=== PATIENT | female | born 1990 | race Two or more races ===

== ENCOUNTER 2024-03-14 12:38 | Emergency (ER) | payer BC, SELFPAY ==
[2024-03-14 12:39] VITALS: BMI 22.6
[2024-03-14 13:16] VITALS: BP 122/85; PULSE 87; RESP 16; TEMP 36.7; O2SAT 99
[2024-03-14 13:21] LABS: Collection Type, Urine Clean Catch
[2024-03-14 13:36] LABS: Basophils % (Auto) 0 % (0-2.5); Eosinophils % (Auto) 0 % (0-10); Hematocrit 36.4 % (36.0-46.0); Hemoglobin 12.4 g/dL (12.0-16.0); Immature Granulocytes % (Auto) 0 % (0-0); Immature Granulocytes Auto 0.03 Thou/mm3 (0.00-0.00); Lymphocytes # (Auto) 1.4 Thou/mm3 (1.0-4.8); Lymphocytes % (Auto) 17 % (10-50); Mean Corpuscular HGB Conc 34.1 g/dl (31.0-37.0); Mean Corpuscular Hemoglobin 29.7 pg (25.0-35.0); Mean Corpuscular Volume 87 fL (80-100); Monocytes # (Auto) 0.7 Thou/mm3 (0.0-0.8); Monocytes % (Auto) 8 % (0-12); Neutrophils # (Auto) 6.4 Thou/mm3 (1.8-7.7); Neutrophils % (Auto) 75 % (37-80); Nucleated Red Blood Cell % 0 /100 WBC (0); Platelet Count 276 Thou/mm3 (140-440); RDW Standard Deviation 39.6 fL (36.4-46.3); Red Blood Count 4.17 Miln/mm3 (4.00-5.20); White Blood Count 8.6 Thou/mm3 (3.6-11.0)
[2024-03-14 13:44] LABS: Partial Thromboplastin Time 25.9 Seconds (22.0-36.0); Prothrombin Time 11.4 Seconds (9.0-12.2)
[2024-03-14 13:54] LABS: Alanine Aminotransferase 7 U/L (10-49); Albumin, Serum 4.4 gm/dL (3.5-5.0); Albumin/Globulin Ratio 1.8 (1.2-2.2); Alkaline Phosphatase 75 U/L (46-116); Anion Gap 5 (7-16); Aspartate Amino Transferase < 10 U/L (0-34); BUN/Creatinine Ratio 19 Ratio (12-20); Bilirubin,Total 0.6 mg/dL (0.3-1.2); Blood Urea Nitrogen 13 mg/dL (9-23); Calcium 9.1 mg/dL (8.3-10.6); Calcium (Corrected) 9.1 mg/dL (8.5-10.1); Carbon Dioxide 26.7 mMol/L (20.0-31.0); Chloride 103 mMol/L (98-107); Creatinine (Component) 0.7 mg/dL (0.6-1.3); Estimated Creatinine Clearance 87.1 mL/min (>60); Globulin 2.5 gm/dL (2.3-3.5); Glucose 104 mg/dL (74-106); Magnesium 2.1 mg/dL (1.6-2.6); Osmolality,Calculated 270 (275-295); Potassium 3.6 mMol/L (3.4-5.1); Sodium 135 mMol/L (136-145); Total Protein 6.9 gm/dL (5.7-8.2); eGFR > 60 See Note
[2024-03-14 14:00] LABS: Bilirubin,Urine Negative (Negative); Blood,Urine 3+ (Negative); Clarity,Urine Turbid (Clear/Hazy); Color,Urine Yellow (Lt Yel-Yel); Culture Indicated,Urine Not Indicated; Glucose, Urine Negative (Negative); Ketones,Urine Negative (Negative); Leukocyte Esterase,Urine Positive (Negative); Nitrite,Urine Negative (Negative); Protein,Urine 1+ (Neg - Trace); RBC,Urine 2105 /hpf (0-3); Specific Gravity,Urine 1.028 (1.001-1.035); Squamous Epithelial Cell,Urine 2 /hpf (0-5); Urobilinogen,Urine Negative mg/dL (0.0-1.0); WBC,Urine 2 /hpf (0-5)
--- NOTE | 2024-03-14 14:18 | EDNOTE_ITS ---
ED Female Urogenital RME/HPI General Chief complaint: Urogenital-Female Stated complaint: VAG BLEEDING, UNKNOWN IF Time Seen by Provider: 03/14/24 12:42 Arrival date/time: 03/14/24 12:38 RME / HPI RME / HPI Narrative: This section includes all my notes and documentations, including HPI, PE, and ED course.? Lloyd Pal MD HPI: 33 year old female here with heavy vaginal bleeding since last night. Had normal period two weeks ago. No pain. No other complaints. ROS: All negative except as documented in HPI. Physical Exam: General:? Alert and oriented.? No acute distress when remaining still.?? Eyes:? Conjunctivae and lids clear.? ENT:? No nasal congestion.? Neck:? Supple.? Heart:? RRR.? Lungs:? No respiratory distress.? Good air movement.? No rhonchi, wheezing, rales.?? Abdomen:? Soft and nontender.?? Skin:? Warm and dry.?? Neuro:? Alert and oriented X 3.?? Blood tests and urine tests?unremarkable, including normal H/H. Recommended more outpatient [employer] workup. Based on my best medical judgment, made decision no further evaluation or treatment indicated at this time.? Patient understands and agrees to the discharge instructions customized and printed, see below. Discharge Instructions from Dr. Pal printed for you: 1. After evaluation, the exact cause of your heavy bleeding was not determined. But there is no emergency needing blood transfusion. 2. To help stop the bleeding, take Ortho Tri-Cyclen (one pill) 4X daily for 7 days. 3. See a private doctor on 03/16/2024. Ask for a referral to see safety council director to help you find the cause and treatment of your heavy bleeding. 4. Seek immediate medical care with worsening or with any concerns. Lloyd Pal MD Related Data Previous Rx's ?Medication ?Instructions ?Recorded ibuprofen 400 mg tablet 400 mg PO [id number] ##20 08/01/11 Amox Tr/Potassium Clavulanate 1 tab PO BID ##20 12/07/12 (Augmentin 500-125 Tablet) ibuprofen 600 mg tablet 600 mg PO Q6H #30 tabs 07/29/22 norgestimate-ethinyl estradiol 1 tab PO QID 7 days #28 tabs 03/14/24 0.18 mg/0.215mg/0.25mg-35 mcg(28)tablet (Ortho Tri-Cyclen (28)) Allergies Allergy/AdvReac Type Severity Reaction Status Date / Time codeine Allergy Severe VOMITING/RA Verified 03/14/24 14:29 SH Course Quality Measures none Orders Category Date Time Status CBC Stat Lab 03/14/24 13:19 Completed CMP [Comprehensive Metabolic Panel] Stat Lab 03/14/24 13:19 Completed HCG,Qualitative Serum Stat Lab 03/14/24 13:19 Completed Magnesium Stat Lab 03/14/24 13:19 Completed PT [Prothrombin Time with INR] Stat Lab 03/14/24 13:19 Completed PTT [Partial Thromboplastin Time] Stat Lab 03/14/24 13:19 Completed UA, C/S IF [Urinalysis, C/S if Indicated] Stat Lab 03/14/24 13:10 Completed Vital Signs Vital signs: Vital Signs Temperature 98.1 F 03/14/24 13:16 Pulse Rate 87 03/14/24 13:16 Respiratory Rate 16 03/14/24 13:16 Blood Pressure 122/85 H 03/14/24 13:16 Pulse Oximetry (%) 99 03/14/24 13:16 Oxygen Delivery Method Room Air 03/14/24 13:16 Urogenital - Female Patient data External records reviewed:: None Clinical information provided by:: patient Social determinants that could affect healthcare access:: none Patient has the following chronic illnesses:: none How is presenting disease/condition affected by chronic disease/condition?: no chronic disease Evaluation data The following diagnostics were reviewed and interpreted by me:: lab results Lab and/or radiology exams considered but not ordered:: none Interpretation Summary: normal Medications / Prescriptions Medications or Prescriptions considered but not ordered:: none Medication administrations:: none Consultations Consultation(s) initiated? (list below): No Diagnosis Urogenital Female Differential Diagnosis: urinary tract infection, cystitis and dysmenorrhea Most likely diagnosis given after review of the tests above:: unknown Admission Indicated Admission indicated?: not indicated Explain why admission is indicated or not indicated:: admission criteria not met Admission Request Was there a request for admission?: No Disposition Plan Disposition Plan: Discharge Discharge Attestation Discharge Attestation: The patient and all family members were given an opportunity to ask questions and understood the discharge instructions. Discharge instructions specifically effects, indications for sooner follow up or return to the emergency department, and the expected course of current diagnosis. Patient condition: Stable Discharge Plan Plan Patient Disposition: HOME (Self Care) Prescriptions/Referrals Prescriptions/Med Rec: New norgestimate-ethinyl estradiol [Ortho Tri-Cyclen (28)] 0.18/0.215/0.25 mg-35 mcg (28) tablet 1 tab PO QID 7 Days Qty: 28 0RF No Action ibuprofen 400 MG tablet 400 mg PO [id number] Qty: 20 0RF Amox Tr/Potassium Clavulanate (Augmentin 500-125 Tablet) 1 TAB tablet 1 tab PO BID Qty: 20 0RF ibuprofen 600 mg tablet 600 mg PO Q6H Qty: 30 0RF Referrals: Yannick Diallo MD [Primary Care Provider] - In 1 week Problem List Clinical Impression: Menorrhagia Patient/Caregiver Discharge Instructions Discharge Activity: activity as tolerated Education Materials: ED Dysfunctional Uterine Bleeding, ED Heavy Menstrual Bleeding Additional Instructions: Discharge Instructions from Dr. Pal printed for you: 1. After evaluation, the exact cause of your heavy bleeding was not determined. But there is no emergency needing blood transfusion. 2. To help stop the bleeding, take Ortho Tri-Cyclen (one pill) 4X daily for 7 days. 3. See a private doctor on 03/16/2024. Ask for a referral to see safety council director to help you find the cause and treatment of your heavy bleeding. 4. Seek immediate medical care with worsening or with any concerns. Print Language: Vietnamese Stand Alone Forms: Kate Award Info., Patient Portal Info Letter
[2024-03-14 14:20] LABS: HCG,Qualitative Serum Negative
== END 2024-03-14 14:30 | disposition home or self-care (01) ==
PROVIDERS: Emergency Provider Emergency Medicine; PCP Family Medicine
DX: N92.0 Excessive and frequent menstruation with regular cycle (principal)
CPT/HCPCS: 36415; 80053; 81001; 83735; 84703; 85025; 85610; 85730; 99283